=== PATIENT | male | born 1970 | race Caucasian/White ===

== ENCOUNTER 2023-07-28 09:43 | Day surgery (SDC) | payer OTHER ==
[2023-07-28] MEDS ORDERED: Lactated Ringers 1,000 ML IV ONE ×2 (09:48→09:59)
[2023-07-28] MEDS: Lactated Ringers 1,000 ML IV SCH (10:02)
[2023-07-28 10:07] VITALS: RESP 18
[2023-07-28 10:56] LABS: ALBUMIN 3.7 g/dL (3.5-5.0); ANION GAP 12.7 MEQ/L (5-15); BILIRUBIN,TOTAL 1.1 mg/dL (0.2-1.3); Calcium 8.9 mg/dL (8.4-10.2); Creatinine 1 0.94 mg/dL (0.66-1.25); EST GLOMERULAR FILTRATION RATE 97.5 ML/MIN; Potassium 4.4 mmol/L (3.5-5.1); Total Protein 6.8 g/dL (6.3-8.2)
[2023-07-28] MEDS ORDERED: Versed 2 MG/2 ML Injection ONE (12:46)
[2023-07-28] MEDS ORDERED: Xylocaine-Mpf 2% 5 Ml Vial ONE (12:46)
[2023-07-28] MEDS ORDERED: DIPRIVAN 200 MG/20 ML IV ONE ×3 (12:46→13:17)
[2023-07-28 13:57] VITALS: O2SAT 92
[2023-07-28 14:14] VITALS: BP 157/92; PULSE 83; TEMP 97.6
--- NOTE | 2023-07-28 14:14 | OP ---
SURGERY DATE/TIME: 07/28/2023 1250 PREOPERATIVE DIAGNOSIS: Elevated CEA and bright red blood per rectum. POSTOPERATIVE DIAGNOSES: 1) Large rectal polyps. 2) Slightly nodular prostate. PROCEDURE: Colonoscopy with polypectomy and tattoo. SURGEON: Leno Leung M.D. ANESTHESIA: IV anesthesia. CONDITION: Stable. COMPLICATIONS: None. SPECIMEN: 1) Ileocecal valve biopsy. 2) Rectal polyp at 20 cm at base for margins. 3) Rectal additional tissue. HISTORY: The patient is a 52-year-old male with no prior colonoscopy that presents with elevated CEA and bright red blood per rectum. I think that it is internal hemorrhoids. FINDINGS: Large rectal polyp at 20 cm. DESCRIPTION OF PROCEDURE: The patient brought down to endoscopy suite, routinely positioned and prepared. Time out performed. The external examination showed no significant hemorrhoidal disease. Internal examination shows slightly nodular prostate. The colonoscope inserted and retroflexed. There is not really any significant internal hemorrhoidal disease either. The scope is then advanced to the cecum confirmed by the ileocecal valve and appendiceal orifice. The Aronchick preparation is poor that small lesions could be missed and larger sessile lesions could be missed but copious amount of time spent irrigating off. The ileocecal valve is slightly prominent and with suctioning it was a little irritated but a biopsy was taken of the ileocecal valve. On withdrawal time greater than six minutes. There is a large 2 cm polyp with a stalk that is snared. There does appear to be healthy base on the stalk but it is taken with normal tissue on the stalk with hot snare this is at 20 cm from the third rectal valve. The polyp is retrieved and sent as "rectal polyp at 20 cm" with the base for margins and a little additional tissue that is also sent separately but that is clearly not the base. The defect is totally healthy, satisfactory hemostatic. Tattoo is placed immediately distal to that. Pictures were all taken. Retroflex into the rectum again normal. RECOMMENDATIONS: I recommend follow up in office in around two weeks. He should have a PSA if he does not have one already as the prostate is slightly nodular on exam. He certainly needs to follow up on the pathology of this polyp for any dysplasia. With the poor preparation, he is probably going to have a short interval colonoscopy also.
== END 2023-07-28 14:30 | disposition home or self-care (01) ==
LOC: SDC 09:43
PROVIDERS: ATTEND Surgery
DX: D12.8 Benign neoplasm of rectum (principal); R97.0 Elevated carcinoembryonic antigen [CEA]; K62.5 Hemorrhage of anus and rectum; Z80.0 Family history of malignant neoplasm of digestive organs; N40.2 Nodular prostate without lower urinary tract symptoms
CPT/HCPCS: 36415; 80053; J2250; J2704

== ENCOUNTER 2023-07-30 12:08 | Emergency (ER) | payer OTHER ==
[2023-07-30] MEDS ORDERED: XYLOCAINE 1%/Epi 1:100000 MDV 20 ML ONE (12:15)
[2023-07-30] MEDS: XYLOCAINE 1%/Epi 1:100000 MDV 20 ML IJ ONE (12:17)
[2023-07-30 12:18] VITALS: BP 110/86; PULSE 89; TEMP 97.3; O2SAT 94
--- NOTE | 2023-07-30 12:38 | ERPHSYRPT ---
- History of Present Illness Time Seen by Provider: 07/30/23 12:20 Source: patient Exam Limitations: no limitations Patient Subjective Stated Complaint: pt has vericose veins on his lower ext and one busted on his left lower leg Triage Nursing Assessment: Pt brought to the ER by EMS, vitals wnl, denies pain, pulses normal, bleeding has stopped, states that this has happened in the past, doesn't appear to be in any distress Physician History: Patient is a 52-year-old white male who has marked severe varicose veins of the left lower extremity he has had many episodes of bleeding from varicosities this episode started right yesterday and has been bleeding despite pressure dressings. Timing/Duration: yesterday Severity: moderate Associated Symptoms: denies symptoms Allergies/Adverse Reactions: gabapentin Adverse Reaction (Verified 07/30/23 12:18) hallucinations ibuprofen Adverse Reaction (Verified 07/30/23 12:18) Diarrhea Home Medications: Amlodipine Besylate 2.5 mg PO DAILY 07/28/23 [History] Apixaban [Eliquis] 5 mg PO BID 07/28/23 [History] Furosemide 40 mg [Lasix 40 MG] 40 mg PO DAILY 07/28/23 [History] Lisinopril 20 mg [Zestril 20 MG] 20 mg PO DAILY 07/28/23 [History] Metoprolol Succinate 50 mg [Toprol Xl 50 MG] 50 mg PO DAILY 07/28/23 [History] Potassium Chloride [Klor-Con 10] 10 meq PO DAILY 07/28/23 [History] Umeclidinium Brm/Vilanterol Tr [Anoro Ellipta 62.5-25 Mcg INH] 1 each IH DAILY 07/28/23 [History] Hx Tetanus, Diphtheria Vaccination/Date Given: Yes Hx Influenza Vaccination/Date Given: Yes Hx Pneumococcal Vaccination/Date Given: Yes Immunizations Up to Date: Yes Travel Risk - International Travel Have you traveled outside of the country in past 3 weeks: No - Emerging Infectious Disease Are you exhibiting symptoms associated with any current EIDs: No - Review of Systems Constitutional: No Fever, No Chills Eyes: No Symptoms Ears, Nose, & Throat: No Symptoms Respiratory: No Cough, No Dyspnea Cardiac: No Chest Pain, No Edema, No Syncope Abdominal/Gastrointestinal: No Abdominal Pain, No Nausea, No Vomiting, No Diarrhea Genitourinary Symptoms: No Dysuria Musculoskeletal: No Back Pain, No Neck Pain Skin: Other (Varicosities left lower extremity), No Rash Neurological: No Dizziness, No Focal Weakness, No Sensory Changes Psychological: No Symptoms Endocrine: No Symptoms All Other Systems: Reviewed and Negative - Past Medical History Pertinent Past Medical History: Yes Neurological History: No Pertinent History Cardiac History: Arrhythmia, Hypertension Respiratory History: COPD Endocrine Medical History: No Pertinent History Musculoskeletal History: Arthritis, Fractures Other Medical History: varicose veins. AFIB. R foot fx 1984 - Past Surgical History Past Surgical History: No Neuro Surgical History: No Pertinent History Cardiac: No Pertinent History Respiratory: No Pertinent History Gastrointestinal: Hernia Repair Genitourinary: No Pertinent History Musculoskeletal: Joint Replacement Male Surgical History: No Pertinent History Other Surgical History: blood clots removed from left leg-2017 - Social History Smoking Status: Never smoker Exposure to second hand smoke: No Drug Use: none Patient Lives Alone: No - Nursing Vital Signs Nursing Vital Signs: Initial Vital Signs Temperature 97.3 F 07/30/23 12:11 Pulse Rate 89 07/30/23 12:11 Blood Pressure 110/86 07/30/23 12:11 O2 Sat by Pulse Oximetry 94 L 07/30/23 12:11 Pain Scale Pain Intensity 0 - Physical Exam General Appearance: no apparent distress, alert Eye Exam: PERRL/EOMI, eyes nml inspection Ears, Nose, Throat Exam: normal ENT inspection, TMs normal, pharynx normal, moist mucous membranes Neck Exam: normal inspection, non-tender, supple, full range of motion Respiratory Exam: normal breath sounds, lungs clear, No respiratory distress Cardiovascular Exam: regular rate/rhythm, normal heart sounds, normal peripheral pulses Gastrointestinal/Abdomen Exam: soft, normal bowel sounds, No tenderness, No mass Back Exam: normal inspection, normal range of motion, No CVA tenderness, No vertebral tenderness Extremity Exam: other (Examination shows a varicosity which has been bleeding there is no active bleeding but every time he drops the leg to walk or stand he has increased bleeding.) Neurologic Exam: alert, oriented x 3, cooperative, normal mood/affect, nml cerebellar function, nml station & gait, sensation nml, No motor deficits Skin Exam: normal color, warm, dry, other (Varicosities), No rash Lymphatic Exam: No adenopathy SpO2 Interpretation: normal SpO2: 94 O2 Delivery: Room Air Procedures - Laceration/Wound Repair Left Lower Calf Wound Location: Left, lower leg Wound Length (cm): 0.2 Wound's Depth, Shape: superficial, irregular Wound Explored: Bleeding varicose vein Irrigated: Yes Hibiclens Prep: Yes Anesthesia: 1% lidocaine w/ Epi Volume Anesthetic (ccs): 3 Wound Debrided: minimal Wound Repaired With: sutures Suture Size/Type: 3-0, nylon Number of Sutures: 2 Layer Closure?: No - Course Nursing assessment & vital signs reviewed: Yes Ordered Tests: Medication Summary Discontinued Medications Generic Name Dose Route Start Last Admin Trade Name Freq PRN Reason Stop Dose Admin Lidocaine/Epinephrine 5 ml 07/30/23 12:16 07/30/23 12:17 Lidocaine Hcl/Epinephrine 1% 20 Ml IJ 07/30/23 12:17 5 ml STAT ONE Administration Lidocaine/Epinephrine Confirm 07/30/23 12:15 Lidocaine Hcl/Epinephrine 1% 20 Ml Administered 07/30/23 12:16 Dose 5 ml .ROUTE .[employer] ONE - Progress Progress: improved Progress Note: 07/30/23 12:40 Two 3-0 nylon sutures were placed on the upper and lower part of the lesion to try to occlude blood flow to that area. After the sutures were placed it seemed the bleeding stopped and it was observed for some time. Discussed with : [facility] - Risk of complications Low Risk: Low risk of morbidity from additional dx testing or treatment - Departure Departure Disposition: Home Clinical Impression: Ruptured varicosity Condition: Stable Critical Care Time: No Referrals: GUMARO CAVAZOS MD [Primary Care Provider] - Follow up/PCP as directed Instructions: Varicose Veins (DC) Additional Instructions: Patient was instructed to take 2 days off work and try to elevate the left lower extremity is much as possible sutures should be removed in 10 days. Forms: Work/School Release Form
== END 2023-07-30 13:00 | disposition home or self-care (01) ==
LOC: ED 12:08
DX: I83.892 Varicose veins of left lower extremity with other complications (principal); I10 Essential (primary) hypertension; Z79.01 Long term (current) use of anticoagulants; Z79.899 Other long term (current) drug therapy
CPT/HCPCS: 12001; 96372; 99282

== ENCOUNTER 2023-08-31 23:33 | Observation (INO) | payer OTHER, SELFPAY ==
[2023-09-01] MEDS ORDERED: Sodium Chloride 0.9% 1000 ML 1,000 ML ONE (00:08)
[2023-09-01] MEDS: Sodium Chloride 0.9% 1000 ML 1,000 ML IV STA (00:09)
[2023-09-01 00:11] LABS: Absolute Neutrophil Ct (ANC) 5.57 x10^3/uL (1.4-6.9); BASOPHIL % 0.7 % (0.0-0.4); Basophil (Absolute #) 0.05 x10^3/uL (0-0.4); Eosinophil % 2.7 % (0.00-5.0); Hematocrit 32.3 % (42-50); Hemoglobin 9.5 g/dL (12.5-18.0); IMMATURE GRAN # 0.03 x10^3u/L (0.00-0.03); IMMATURE GRAN % 0.4 % (0.00-0.4); Lymphocyte (Absolute #) 0.84 x10^3/uL (1.0-4.6); Lymphocytes % 11.3 % (24.0-44.0); Mean Cell Volume 92.6 fL (78-100); Mean Corpuscular Hemoglobin 27.2 pg (26-32); Mean Corpuscular Hgb Concent. 29.4 g/dL (32-36); Mean Platelet Volume 13.1 fL (7.5-11.0); Monocyte (Absolute #) 0.73 x10^3/uL (0.0-1.3); Monocytes % 9.8 % (0.0-12.0); Neutrophil % 75.1 % (36.0-66.0); Platelet Count 238 x10^3/uL (150-450); Red Blood Count 3.49 x10^6/uL (4.1-5.6); Red Cell Distribution Width 15.6 % (11.5-14.0); White Blood Count 7.4 x10^3/uL (4.0-10.5)
[2023-09-01 00:25] LABS: ALBUMIN 3.9 g/dL (3.5-5.0); ANION GAP 12.1 MEQ/L (5-15); BILIRUBIN,TOTAL 0.9 mg/dL (0.2-1.3); Calcium 8.8 mg/dL (8.4-10.2); Creatinine 1 1.4 mg/dL (0.66-1.25); EST GLOMERULAR FILTRATION RATE 60.5 ML/MIN; Total Protein 6.9 g/dL (6.3-8.2)
[2023-09-01 02:05] VITALS: O2SAT 99
[2023-09-01] MEDS ORDERED: MORPHINE SULFATE 2 MG INJ ONE (02:05)
[2023-09-01] MEDS: MORPHINE SULFATE 2 MG INJ IV ONE (02:05)
--- NOTE | 2023-09-01 02:53 | ERPHSYRPT ---
- History of Present Illness Time Seen by Provider: 08/31/23 23:50 Exam Limitations: no limitations Patient Subjective Stated Complaint: varicose vein ruptured Triage Nursing Assessment: pt presents to ED via medic 1, pt transferred to cot via sheet pull, pt alert and oriented x3, pt has varicose vein that ruptured on the L lower leg around 2230, ems placed tourniquet on around 2257, upon arrival tourniquet removed by ER MD at 2348 and vein still profusely bleeding. pinpint pressure applied Physician History: 52-year-old male presents emergency department via EMS for evaluation of hemorrhage from a varicose vein left lower extremity. Patient has had left lower extremity hemorrhage from varicose veins in the past. Patient was at home. Large volume of blood loss. Upon arrival to our ED patient was hypotensive. Patient was pale. There was a tourniquet placed below the knee left lower extremity. There is a compression dressing as well. Compression dressing removed. The involved site was oozing blood. We applied the pressure dressing and removed the tourniquet. Excellent hemostasis. No other injuries reported. Mother at bedside. They voiced no other complaints or concerns at this time. Portions of this note were created with voice recognition technology. There may be grammatical, spelling, punctuation or sound alike errors Timing/Duration: today Severity: moderate Modifying Factors: Improves With: nothing Associated Symptoms: denies symptoms Allergies/Adverse Reactions: gabapentin Adverse Reaction (Verified 08/31/23 23:37) hallucinations ibuprofen Adverse Reaction (Verified 08/31/23 23:37) Diarrhea Home Medications: Amlodipine Besylate 2.5 mg PO DAILY 07/28/23 [History] Apixaban [Eliquis] 5 mg PO BID 07/28/23 [History] Furosemide 40 mg [Lasix 40 MG] 40 mg PO DAILY 07/28/23 [History] Lisinopril 20 mg [Zestril 20 MG] 20 mg PO DAILY 07/28/23 [History] Metoprolol Succinate 50 mg [Toprol Xl 50 MG] 50 mg PO BID 07/28/23 [History] Potassium Chloride [Klor-Con 10] 10 meq PO DAILY 07/28/23 [History] Albuterol Sulfate [Proair Respiclick] 90 mcg IH Q4H PRN PRN 09/01/23 [History] Benzonatate 100 mg PO TID PRN PRN 09/01/23 [History] Fluticasone/Umeclidin/Vilanter [Trelegy Ellipta 100-62.5-25] 1 each IH DAILY 09/01/23 [History] Montelukast Sodium 10 mg [Singulair 10 MG] 10 mg PO DAILY 09/01/23 [History] Hx Tetanus, Diphtheria Vaccination/Date Given: Yes Hx Influenza Vaccination/Date Given: Yes Hx Pneumococcal Vaccination/Date Given: Yes Immunizations Up to Date: Yes Travel Risk - International Travel Have you traveled outside of the country in past 3 weeks: No - Emerging Infectious Disease Are you exhibiting symptoms associated with any current EIDs: No - Review of Systems Constitutional: No Symptoms, No Fever, No Chills Eyes: No Symptoms Ears, Nose, & Throat: No Symptoms Respiratory: No Symptoms, No Cough, No Dyspnea Cardiac: No Symptoms, No Chest Pain, No Edema, No Syncope Abdominal/Gastrointestinal: No Symptoms, No Abdominal Pain, No Nausea, No Vomiting, No Diarrhea Genitourinary Symptoms: No Symptoms, No Dysuria Musculoskeletal: No Symptoms, No Back Pain, No Neck Pain Skin: No Symptoms, No Rash Neurological: No Symptoms, No Dizziness, No Focal Weakness, No Sensory Changes Psychological: No Symptoms Endocrine: No Symptoms Hematologic/Lymphatic: No Symptoms Immunological/Allergic: No Symptoms All Other Systems: Reviewed and Negative - Past Medical History Pertinent Past Medical History: Yes Neurological History: No Pertinent History Cardiac History: Arrhythmia, Hypertension Respiratory History: COPD Endocrine Medical History: No Pertinent History Musculoskeletal History: Arthritis, Fractures Other Medical History: varicose veins. AFIB. R foot fx 1984 - Past Surgical History Past Surgical History: No Neuro Surgical History: No Pertinent History Cardiac: No Pertinent History Respiratory: No Pertinent History Gastrointestinal: Hernia Repair Genitourinary: No Pertinent History Musculoskeletal: Joint Replacement Male Surgical History: No Pertinent History Other Surgical History: blood clots removed from left leg-2018 - Social History Smoking Status: Never smoker Exposure to second hand smoke: No Drug Use: none Patient Lives Alone: No - Nursing Vital Signs Nursing Vital Signs: Initial Vital Signs Temperature 97.8 F 08/31/23 23:38 Pulse Rate 99 H 08/31/23 23:38 Respiratory Rate 18 08/31/23 23:38 Blood Pressure 80/42 08/31/23 23:38 O2 Sat by Pulse Oximetry 98 08/31/23 23:38 Pain Scale Pain Intensity 6 - Physical Exam General Appearance: no apparent distress, alert Eye Exam: PERRL/EOMI, eyes nml inspection Ears, Nose, Throat Exam: normal ENT inspection, TMs normal, pharynx normal, moist mucous membranes Neck Exam: normal inspection, non-tender, supple, full range of motion Respiratory Exam: normal breath sounds, lungs clear, airway intact, No respiratory distress Cardiovascular Exam: regular rate/rhythm, normal heart sounds, normal peripheral pulses Gastrointestinal/Abdomen Exam: soft, normal bowel sounds, No tenderness, No mass Back Exam: normal inspection, normal range of motion, No CVA tenderness, No vertebral tenderness Extremity Exam: normal inspection, normal range of motion, pelvis stable, other (Active bleeding from a ruptured varicose vein. Peripheral pulses are palpable.) Neurologic Exam: alert, oriented x 3, cooperative, normal mood/affect, nml cerebellar function, nml station & gait, sensation nml, No motor deficits Skin Exam: normal color, warm, dry, No rash Lymphatic Exam: No adenopathy SpO2 Interpretation: normal SpO2: 99 O2 Delivery: Room Air Procedures - Laceration/Wound Repair Left Calf Time of Procedure: 02:45 Wound Location: Left (Left lower leg medial aspect) Wound Length (cm): 0.4 Wound's Depth, Shape: superficial Wound Explored: clean Irrigated: Yes Hibiclens Prep: Yes Wound Debrided: No debridement indicated Wound Repaired With: sutures Suture Size/Type: 3-0, vicryl Number of Sutures: 5 Sterile Dressing Applied?: Yes Splint Applied?: No Sling Applied?: No Progress: Morphine administered for pain control 09/01/23 03:07 - Course Nursing assessment & vital signs reviewed: Yes Ordered Tests: Active Orders 24 hr Category Date Time Status Bedrest ROUTINE Activity 09/01/23 02:56 Active Call Admit Doctor for Orders ON ADMISSION Care 09/01/23 02:56 Active Explosives Truck Driver ROUTINE Care 09/01/23 02:56 Active Code Status Order ROUTINE Care 09/01/23 02:56 Active IV Insertion STAT Care 08/31/23 23:58 Active Neuro Checks Q4H Care 09/01/23 02:[address] in Observation ROUTINE Care 09/01/23 02:56 Active Telemetry q6h Care 09/01/23 02:56 Active Telemetry q6h Care 09/01/23 02:56 Completed Consistent Carbohydrate Diet 1800 Calorie Diet 09/01/23 Breakfast Active Pulse Oximetry CONTINUOUS RT 09/01/23 02:56 Completed Transfer Order Routine Transfer 09/01/23 Ordered Medication Summary Discontinued Medications Generic Name Dose Route Start Last Admin Trade Name Adrien PRN Reason Stop Dose Admin Sodium Chloride 1,000 mls @ 999 mls/hr 08/31/23 23:58 09/01/23 01:30 Sodium Chloride 0.9% 1000 Ml IV 09/01/23 00:58 Infused .Q1H1M STA Infusion Sodium Chloride Confirm 09/01/23 00:08 Sodium Chloride 0.9% 1000 Ml Administered 09/01/23 00:09 Dose 1,000 mls @ ud .ROUTE .STK-MED ONE Morphine Sulfate Confirm 09/01/23 02:05 Morphine Sulfate 2 Mg/Ml Inj Administered 09/01/23 02:06 Dose 2 mg .ROUTE .STK-MED ONE Morphine Sulfate 2 mg 09/01/23 02:05 09/01/23 02:05 Morphine Sulfate 2 Mg/Ml Inj IV 09/01/23 02:06 2 mg STAT ONE Administration Lab/Rad Data: Laboratory Result Diagrams 08/31/23 00:08 08/31/23 00:08 Laboratory Results 08/31/23 08/31/23 Range/Units 00:08 00:08 WBC 7.4 (4.0-10.5) x10^3/uL RBC 3.49 L (4.1-5.6) x10^6/uL Hgb 9.5 L (12.5-18.0) g/dL Hct 32.3 L (42-50) % MCV 92.6 (78-100) fL MCH 27.2 (26-32) pg MCHC 29.4 L (32-36) g/dL RDW 15.6 H (11.5-14.0) % Plt Count 238 (150-450) x10^3/uL MPV 13.1 H (7.5-11.0) fL Gran % 75.1 H (36.0-66.0) % Immature Gran % (Auto) 0.4 (0.00-0.4) % Nucleat RBC Rel Count 0.0 (0.00-0.1) % Eos # (Auto) 0.20 (0-0.5) x10^3/uL Immature Gran # (Auto) 0.03 (0.00-0.03) x10^3u/L Absolute Lymphs (auto) 0.84 L (1.0-4.6) x10^3/uL Absolute Monos (auto) 0.73 (0.0-1.3) x10^3/uL Absolute Nucleated RBC 0.00 (0.00-0.01) x10^3u/L Lymphocytes % 11.3 L (24.0-44.0) % Monocytes % 9.8 (0.0-12.0) % Eosinophils % 2.7 (0.00-5.0) % Basophils % 0.7 (0.0-0.4) % Absolute Granulocytes 5.57 (1.4-6.9) x10^3/uL Basophils # 0.05 (0-0.4) x10^3/uL Sodium 140 (135-145) mmol/L Potassium 4.0 (3.5-5.1) mmol/L Chloride 107 (98-107) mmol/L Carbon Dioxide 26 (22-30) mmol/L Anion Gap 12.1 (5-15) MEQ/L BUN 32 H (9-20) mg/dL Creatinine 1.40 H (0.66-1.25) mg/dL Estimated GFR 60.5 ML/MIN Glucose 179 H (74-106) mg/dL Calcium 8.8 (8.4-10.2) mg/dL Total Bilirubin 0.90 (0.2-1.3) mg/dL AST 17 (17-59) U/L ALT 16 (0-50) U/L Alkaline Phosphatase 81 (38-126) U/L Serum Total Protein 6.9 (6.3-8.2) g/dL Albumin 3.9 (3.5-5.0) g/dL - Progress Progress: improved Progress Note: 52-year-old male presents to our ED with hemorrhage from the left lower extremity varicose vein. Tourniquet pressure dressing applied. We removed the tourniquet and pressure dressing in our ED. The wound was profusely hemorrhaging blood. Pressure dressing applied. Tourniquet removed. We reassessed an hour later. The site continues to bleed. Patient is on Eliquis for A-fib. We decided to repair the bleeding varicosity using 4-0 Vicryl. [id number] stitch applied. Excellent hemostasis obtained. Patient neurovascular tact distally postprocedure. Patient states he feels too weak to go home. Initial laboratory workup reveals a hemoglobin of 9.5. There appears to be elevated creatinine likely secondary to acute renal injury from volume loss. Patient will be admitted for repeat H&H. Possible blood transfusion. Fluids infused. Blood pressure improved. Patient feels better but states he is not ready to be discharged. Management discussed with Dr. Jansen, hospitalist who accepts admission at 2:38 AM. Plan of care discussed with patient. He agrees to admission to [facility] for further evaluation and treatment. Portions of this note were created with voice recognition technology. There may be grammatical, spelling, punctuation or sound alike errors Complexity problem addressed is high. There is threat to bodily function.. No critical care time.. Complex of data reviewed and analyzed is extensive test ordered test reviewed results analyzed and correlated clinically with history and physical examination. Risk of complication and or risk of morbidity/mortality patient management is high. Patient requires hospitalization for further evaluation and treatment. Vital stable. Time spent to admit patient is approximately 20 minutes. Plan of care established for shared decision making. No social determinants of health present impede follow-up. Portions of this note were created with voice recognition technology. There may be grammatical, spelling, punctuation or sound alike errors 09/01/23 02:49 Counseled pt/family regarding: lab results, diagnosis - Departure Departure Disposition: Home Clinical Impression: Hemorrhage of varicose veins of left lower extremity, Acute renal injury, Anemia Condition: Stable Critical Care Time: No
[2023-09-01] MEDS ORDERED: Tessalon Perles 100 MG PO PRN (04:22)
[2023-09-01] MEDS ORDERED: NON-FORMULARY ITEM (Albuterol Sulfate [Proair Respiclick] 90 MCG Aer.Pow.Ba) IH PRN (04:22)
--- NOTE | 2023-09-01 04:26 | PCM.HP ---
History of Present Illness - Chief Complaint Chief Complaint: varicose vein rupture History of Present Illness: is a 52 year old male presents emergency department via EMS for evaluation of hemorrhage from a varicose vein left lower extremity. Patient has had left lower extremity hemorrhage from varicose veins in the past. Patient was at home and experienced large volume of blood loss. Upon arrival to our ED patient was hypotensive. Patient was pale. Underwent a suture with control of the bleeding varicose vein, with excellent hemostasis. No other injuries reported. Mother at bedside. They voiced no other complaints or concerns at this time. Admit overnight for observation. - Review of Systems Constitutional: No Fever, No Chills Eyes: No Symptoms Ears, Nose, & Throat: No Symptoms Respiratory: No Cough, No Short Of Breath Cardiac: No Chest Pain, No Edema, No Syncope Abdominal/Gastrointestinal: No Abdominal Pain, No Nausea, No Vomiting, No Diarrhea Genitourinary Symptoms: No Dysuria Musculoskeletal: No Back Pain, No Neck Pain Skin: No Rash Neurological: No Dizziness, No Focal Weakness, No Sensory Changes Psychological: No Symptoms Endocrine: No Symptoms Hematologic/Lymphatic: No Symptoms Immunological/Allergic: No Symptoms Medications & Allergies Home Medications: Home Medication List Amlodipine Besylate 2.5 mg PO DAILY 07/28/23 [History Confirmed 09/01/23] Apixaban [Eliquis] 5 mg PO BID 07/28/23 [History Confirmed 09/01/23] Furosemide 40 mg [Lasix 40 MG] 40 mg PO DAILY 07/28/23 [History Confirmed 09/01/23] Lisinopril 20 mg [Zestril 20 MG] 20 mg PO DAILY 07/28/23 [History Confirmed 09/01/23] Metoprolol Succinate 50 mg [Toprol Xl 50 MG] 50 mg PO BID 07/28/23 [History Confirmed 09/01/23] Potassium Chloride [Klor-Con 10] 10 meq PO DAILY 07/28/23 [History Confirmed 09/01/23] Albuterol Sulfate [Proair Respiclick] 90 mcg IH Q4H PRN PRN 09/01/23 [History Confirmed 09/01/23] Benzonatate 100 mg PO TID PRN PRN 09/01/23 [History Confirmed 09/01/23] Fluticasone/Umeclidin/Vilanter [Trelegy Ellipta 100-62.5-25] 1 each IH DAILY 0 09/01/23 [History Confirmed 09/01/23] Montelukast Sodium 10 mg [Singulair 10 MG] 10 mg PO DAILY 09/01/23 [History Confirmed 09/01/23] Allergies/Adverse Reactions: Allergies Allergy/AdvReac Type Severity Reaction Status Date / Time gabapentin AdvReac hallucinati Verified 08/31/23 23:37 ons ibuprofen AdvReac Diarrhea Verified 08/31/23 23:37 - Past Medical History Past Medical History: Yes Neurological History: No Pertinent History ENT History: Cataracts Cardiac History: Arrhythmia, Hypertension Respiratory History: COPD Endocrine Medical History: No Pertinent History Musculoskelatal History: Arthritis, Fractures GI Medical History: No Pertinent History History: No Pertinent History Male Reproductive Disorders: No Pertinent History Comment: varicose veins. AFIB. R foot fx 1984 - Past Surgical History Past Surgical History: No Neuro Surgical History: No Pertinent History Cardiac History: No Pertinent History Respiratory Surgery: No Pertinent History GI Surgical History: Hernia Repair Genitourinary Surgical Hx: No Pertinent History Musculskeletal Surgical Hx: Joint Replacement Male Surgical History: No Pertinent History Other Surgical History: blood clots removed from left leg-2017 - Social History Smoking Status: Never smoker Exposure to second hand smoke: No Alcohol: None Drug Use: none - Social Determinants of Health Will the patient participate in the screening: Yes Do you worry about a steady place to live?: No Do you have any problems with any of the following?: No known problems In the past 12 months,have you had to go without utilities?: No Have you or anyone in your house had to go without enough: No Transportation Issues: No Has anyone in your support network made you feel unsafe?: No Does the patient want assistance with any of the above?: No - Physical Exam Vital Signs: Vital Signs - 24 hr Temp Pulse Resp BP BP Pulse Ox 09/01/23 03:14 98.3 F 91 H 20 126/63 99 09/01/23 03:08 99 09/01/23 02:39 91 H 18 93/51 99 09/01/23 02:16 93 H 20 90/50 98 09/01/23 02:01 98 H 20 108/67 99 09/01/23 01:45 97 H 18 89/55 97 09/01/23 01:31 92 H 18 92/43 96 09/01/23 01:16 94 H 19 81/47 96 09/01/23 01:01 95 H 20 69/39 99 09/01/23 00:45 92 H 15 52/40 99 09/01/23 00:32 80 13 69/44 97 09/01/23 00:16 88 96 H 68/41 98 09/01/23 00:00 72 18 64/46 94 L 08/31/23 23:38 97.8 F 99 H 18 80/42 98 General Appearance: no apparent distress, alert Neurologic Exam: alert, oriented x 3, cooperative, normal mood/affect, nml cerebellar function, nml station & gait, sensation nml, No motor deficits Eye Exam: PERRL/EOMI, eyes nml inspection Ears, Nose, Throat Exam: normal ENT inspection, TMs normal, pharynx normal, moist mucous membranes Neck Exam: normal inspection, non-tender, supple, full range of motion Respiratory Exam: normal breath sounds, lungs clear, No respiratory distress Cardiovascular Exam: regular rate/rhythm, normal heart sounds, normal peripheral pulses Gastrointestinal/Abdomen Exam: soft, normal bowel sounds, No tenderness, No mass Back Exam: normal inspection, normal range of motion, No CVA tenderness, No vertebral tenderness Extremity Exam: normal inspection, normal range of motion, pelvis stable Skin Exam: normal color, warm, dry, No rash Lymphatic Exam: No adenopathy Results - Labs Lab/Micro Results: Lab Results-Last 24 Hours 08/31/23 08/31/23 Range/Units 00:08 00:08 WBC 7.4 (4.0-10.5) x10^3/uL RBC 3.49 L (4.1-5.6) x10^6/uL Hgb 9.5 L (12.5-18.0) g/dL Hct 32.3 L (42-50) % MCV 92.6 (78-100) fL MCH 27.2 (26-32) pg MCHC 29.4 L (32-36) g/dL RDW 15.6 H (11.5-14.0) % Plt Count 238 (150-450) x10^3/uL MPV 13.1 H (7.5-11.0) fL Gran % 75.1 H (36.0-66.0) % Immature Gran % (Auto) 0.4 (0.00-0.4) % Nucleat RBC Rel Count 0.0 (0.00-0.1) % Eos # (Auto) 0.20 (0-0.5) x10^3/uL Immature Gran # (Auto) 0.03 (0.00-0.03) x10^3u/L Absolute Lymphs (auto) 0.84 L (1.0-4.6) x10^3/uL Absolute Monos (auto) 0.73 (0.0-1.3) x10^3/uL Absolute Nucleated RBC 0.00 (0.00-0.01) x10^3u/L Lymphocytes % 11.3 L (24.0-44.0) % Monocytes % 9.8 (0.0-12.0) % Eosinophils % 2.7 (0.00-5.0) % Basophils % 0.7 (0.0-0.4) % Absolute Granulocytes 5.57 (1.4-6.9) x10^3/uL Basophils # 0.05 (0-0.4) x10^3/uL Sodium 140 (135-145) mmol/L Potassium 4.0 (3.5-5.1) mmol/L Chloride 107 (98-107) mmol/L Carbon Dioxide 26 (22-30) mmol/L Anion Gap 12.1 (5-15) MEQ/L BUN 32 H (9-20) mg/dL Creatinine 1.40 H (0.66-1.25) mg/dL Estimated GFR 60.5 ML/MIN Glucose 179 H (74-106) mg/dL Calcium 8.8 (8.4-10.2) mg/dL Total Bilirubin 0.90 (0.2-1.3) mg/dL AST 17 (17-59) U/L ALT 16 (0-50) U/L Alkaline Phosphatase 81 (38-126) U/L Serum Total Protein 6.9 (6.3-8.2) g/dL Albumin 3.9 (3.5-5.0) g/dL Assessment/Plan (1) Hemorrhage of varicose veins of left lower extremity Current Visit: Yes Status: Acute Assessment & Plan: 1. CBC check in the AM 2. Hold Apixiban overnight, can resume once Hgb is stable Code(s): I83.892 - VARICOSE VEINS OF L LOW EXTREM WITH OTHER COMPLICATIONS Telemedicine Encounter - Telemedicine Encounter Telemedicine Encounter: The entirety of this encounter was performed via Telemedicine"
[2023-09-01] MEDS: NORCO 5/325 MG PO PRN (04:42)
[2023-09-01 04:53] LABS: ABO TYPING A; Antibody Screen NEGATIVE (NEGATIVE); RH TYPING POSITIVE
[2023-09-01 06:50] LABS: Hematocrit 23.3 % (42-50); Mean Cell Volume 93.6 fL (78-100); Mean Corpuscular Hemoglobin 28.1 pg (26-32); Mean Platelet Volume 12.1 fL (7.5-11.0); Platelet Count 147 x10^3/uL (150-450); Red Blood Count 2.49 x10^6/uL (4.1-5.6); Red Cell Distribution Width 15.6 % (11.5-14.0); White Blood Count 6.4 x10^3/uL (4.0-10.5)
[2023-09-01] MEDS ORDERED: VENTOLIN COMMON CANISTER IH PRN (07:07)
[2023-09-01] MEDS ORDERED: MEDICATION INTERVENTION MC SCH (07:15)
[2023-09-01 07:40] LABS: ALBUMIN 2.7 g/dL (3.5-5.0); ANION GAP 7.9 MEQ/L (5-15); BILIRUBIN,TOTAL 0.7 mg/dL (0.2-1.3); Calcium 7.9 mg/dL (8.4-10.2); Creatinine 1 1.2 mg/dL (0.66-1.25); EST GLOMERULAR FILTRATION RATE 72.8 ML/MIN; Potassium 4.6 mmol/L (3.5-5.1)
[2023-09-01 08:40] LABS: CROSS MATCH (PRBC) COMPATIBLE (COMPATIBLE)
[2023-09-01] MEDS: Sodium Chloride 0.9% 1000 ML 1,000 ML IV SCH (08:46)
[2023-09-01] MEDS: Toprol Xl 50 MG PO SCH (09:19)
[2023-09-01] MEDS: NORVASC 5 MG PO SCH (09:25)
[2023-09-01] MEDS: Lasix 40 MG PO SCH (09:25)
[2023-09-01] MEDS: Klor Con PO SCH (09:25)
[2023-09-01] MEDS: Singulair 10 MG PO SCH (09:25)
[2023-09-01] MEDS: Zestril 20 MG PO SCH (09:25)
[2023-09-01] MEDS ORDERED: NON-FORMULARY ITEM (Apixaban [Eliquis] 5 MG Tablet) PO SCH (10:00)
[2023-09-01] MEDS ORDERED: NON-FORMULARY ITEM (Amlodipine Besylate [Amlodipine Besylate] 2.5 MG Tablet) PO SCH (10:00)
[2023-09-01] MEDS ORDERED: NON-FORMULARY ITEM (Fluticasone/Umeclidin/Vilanter [Trelegy Ellipta 100-62.5-25] 1 EACH Bl IH SCH (10:00)
[2023-09-01 11:25] VITALS: BP 112/62; PULSE 99; RESP 18; TEMP 98.2
--- NOTE | 2023-09-01 12:03 | PCM.DS ---
Discharge Summary Date of Admission: 09/01/23 02:51 Date of Discharge: 09/01/23 Admitting Physician: SHANNON ZAMBRANO MD Primary Care Provider: GUMARO CAVAZOS Allergies Allergies gabapentin Adverse Reaction (Verified 08/31/23 23:37) hallucinations ibuprofen Adverse Reaction (Verified 08/31/23 23:37) Diarrhea Hospital Summary - Hospital Course Hospital Course: is a 52 year old male presents emergency department via EMS for evaluation of hemorrhage from a varicose vein left lower extremity. Patient has had left lower extremity hemorrhage from varicose veins in the past. Patient was at home and experienced large volume of blood loss. Upon arrival to our ED patient was hypotensive. Patient was pale. Underwent a suture with control of the bleeding varicose vein, with excellent hemostasis. No other injuries reported. Patient did receive 1 unit blood transfusion. Vitals have remained stable. Discussed case with Dr. Lopez regarding patient's Eliquis, he would like patient to hold for 48 hours. Surgery has been consulted for vascular consultation as this is the third time patient has experienced hemmorrhage with this particular varicose vein. They will see him OP, appt has been made. Patient stable for discharge after cbc s/p transfusion. Discharge Note New Diagnosis: Hemorrhage of varicose vein of left lower extremity New Medications: Hold Eliquis x 48 hours Follow Up: PCP/Madhu balderas (surgery) Latest Assessment & Plan (1) Hemorrhage of varicose veins of left lower extremity Current Visit: Yes Status: Acute -hgb at 7.0, will transfuse one unit -Madhu group to evaluate OP #AFIB -Hold eliquis per cardiology x 48 hours #HTN -stable #COPD -Does not appear to be in exacerbation, on RA I spent 35 minutes [id number] with the patient on the day of discharge performing discharge exam, discussing hospital stay and discharge instructions with patient and caregivers, preparation of discharge records, prescriptions & referral forms and addressing any questions/concerns the patient had as docum ented above. - Vitals & Intake/Output Vital Signs: Vital Signs Temperature 98.2 F 09/01/23 11:24 Pulse Rate 99 H 09/01/23 11:24 Respiratory Rate 18 09/01/23 11:24 Blood Pressure 112/62 09/01/23 11:24 O2 Sat by Pulse Oximetry 99 05/02/24 07:15 Intake & Output: Intake & Output 08/29/23 08/30/23 08/31/23 09/01/23 11:59 11:59 11:59 11:59 Intake Total 350 Balance 350 Weight 149.7 kg - Lab Result Diagrams: 09/01/23 06:43 09/01/23 06:43 Lab Results-Last 24 Hrs: Lab Results-Last 24 Hours 08/31/23 08/31/23 09/01/23 Range/Units 00:08 00:08 04:10 WBC 7.4 (4.0-10.5) x10^3/uL RBC 3.49 L (4.1-5.6) x10^6/uL Hgb 9.5 L (12.5-18.0) g/dL Hct 32.3 L (42-50) % MCV 92.6 (78-100) fL MCH 27.2 (26-32) pg MCHC 29.4 L (32-36) g/dL RDW 15.6 H (11.5-14.0) % Plt Count 238 (150-450) x10^3/uL MPV 13.1 H (7.5-11.0) fL Gran % 75.1 H (36.0-66.0) % Immature Gran % (Auto) 0.4 (0.00-0.4) % Nucleat RBC Rel Count 0.0 (0.00-0.1) % Eos # (Auto) 0.20 (0-0.5) x10^3/uL Immature Gran # (Auto) 0.03 (0.00-0.03) x10^3u/L Absolute Lymphs (auto) 0.84 L (1.0-4.6) x10^3/uL Absolute Monos (auto) 0.73 (0.0-1.3) x10^3/uL Absolute Nucleated RBC 0.00 (0.00-0.01) x10^3u/L Lymphocytes % 11.3 L (24.0-44.0) % Monocytes % 9.8 (0.0-12.0) % Eosinophils % 2.7 (0.00-5.0) % Basophils % 0.7 (0.0-0.4) % Absolute Granulocytes 5.57 (1.4-6.9) x10^3/uL Basophils # 0.05 (0-0.4) x10^3/uL Sodium 140 (135-145) mmol/L Potassium 4.0 (3.5-5.1) mmol/L Chloride 107 (98-107) mmol/L Carbon Dioxide 26 (22-30) mmol/L Anion Gap 12.1 (5-15) MEQ/L BUN 32 H (9-20) mg/dL Creatinine 1.40 H (0.66-1.25) mg/dL Estimated GFR 60.5 ML/MIN Glucose 179 H (74-106) mg/dL Calcium 8.8 (8.4-10.2) mg/dL Total Bilirubin 0.90 (0.2-1.3) mg/dL AST 17 (17-59) U/L ALT 16 (0-50) U/L Alkaline Phosphatase 81 (38-126) U/L Serum Total Protein 6.9 (6.3-8.2) g/dL Albumin 3.9 (3.5-5.0) g/dL ABO Group A Rh Factor POSITIVE Antibody Screen NEGATIVE (NEGATIVE) Crossmatch (COMPATIBLE) 09/01/23 09/01/23 09/01/23 Range/Units 04:10 06:43 06:43 WBC 6.4 (4.0-10.5) x10^3/uL RBC 2.49 L (4.1-5.6) x10^6/uL Hgb 7.0 L* D (12.5-18.0) g/dL Hct 23.3 L (42-50) % MCV 93.6 (78-100) fL MCH 28.1 (26-32) pg MCHC 30.0 L (32-36) g/dL RDW 15.6 H (11.5-14.0) % Plt Count 147 L D (150-450) x10^3/uL MPV 12.1 H (7.5-11.0) fL Gran % (36.0-66.0) % Immature Gran % (Auto) (0.00-0.4) % Nucleat RBC Rel Count (0.00-0.1) % Eos # (Auto) (0-0.5) x10^3/uL Immature Gran # (Auto) (0.00-0.03) x10^3u/L Absolute Lymphs (auto) (1.0-4.6) x10^3/uL Absolute Monos (auto) (0.0-1.3) x10^3/uL Absolute Nucleated RBC (0.00-0.01) x10^3u/L Lymphocytes % (24.0-44.0) % Monocytes % (0.0-12.0) % Eosinophils % (0.00-5.0) % Basophils % (0.0-0.4) % Absolute Granulocytes (1.4-6.9) x10^3/uL Basophils # (0-0.4) x10^3/uL Sodium 141 (135-145) mmol/L Potassium 4.6 (3.5-5.1) mmol/L Chloride 112 H (98-107) mmol/L Carbon Dioxide 26 (22-30) mmol/L Anion Gap 7.9 (5-15) MEQ/L BUN 32 H (9-20) mg/dL Creatinine 1.20 (0.66-1.25) mg/dL Estimated GFR 72.8 ML/MIN Glucose 103 (74-106) mg/dL Calcium 7.9 L (8.4-10.2) mg/dL Total Bilirubin 0.70 (0.2-1.3) mg/dL AST 15 L (17-59) U/L ALT 12 (0-50) U/L Alkaline Phosphatase 62 (38-126) U/L Serum Total Protein 5.0 L (6.3-8.2) g/dL Albumin 2.7 L (3.5-5.0) g/dL ABO Group Rh Factor Antibody Screen (NEGATIVE) Crossmatch COMPATIBLE (COMPATIBLE) Discharge Exam General Appearance: no apparent distress Neurologic Exam: alert, oriented x 3, cooperative Eye Exam: PERRL Ears, Nose, Throat Exam: normal ENT inspection Neck Exam: normal inspection, full range of motion Respiratory Exam: normal breath sounds, lungs clear Cardiovascular Exam: regular rate/rhythm, normal heart sounds Gastrointestinal/Abdomen Exam: soft, normal bowel sounds Male Genitalia Exam: deferred Rectal Exam: deferred Back Exam: normal inspection Extremity Exam: lacerations (LLE with sutures CDI, no erythema/draina ge/streaking) Skin Exam: normal color Final Diagnosis/Problem List - Final Discharge Diagnosis/Problem (1) Hemorrhage of varicose veins of left lower extremity Current Visit: Yes Status: Resolved Code(s): I83.892 - VARICOSE VEINS OF L LOW EXTREM WITH OTHER COMPLICATIONS (2) Afib Current Visit: Yes Status: Chronic Code(s): I48.91 - UNSPECIFIED ATRIAL FIBRILLATION (3) HTN (hypertension) Current Visit: Yes Status: Chronic Code(s): I10 - ESSENTIAL (PRIMARY) HYPERTENSION (4) COPD (chronic obstructive pulmonary disease) Current Visit: Yes Status: Chronic - Discharge Disposition: Home, Self-Care Condition: Stable Prescriptions: Continue Potassium Chloride [Klor-Con 10] 10 meq PO DAILY Furosemide 40 mg [Lasix 40 MG] 40 mg PO DAILY Metoprolol Succinate 50 mg [Toprol Xl 50 MG] 50 mg PO BID Amlodipine Besylate 2.5 mg PO DAILY Lisinopril 20 mg [Zestril 20 MG] 20 mg PO DAILY Fluticasone/Umeclidin/Vilanter [Trelegy Ellipta 100-62.5-25] 1 each IH DAILY Albuterol Sulfate [Proair Respiclick] 90 mcg IH Q4H PRN PRN PRN Reason: Shortness Of Breath/Wheezing Montelukast Sodium 10 mg [Singulair 10 MG] 10 mg PO DAILY Benzonatate 100 mg PO TID PRN PRN PRN Reason: Cough Discontinued Apixaban [Eliquis] 5 mg PO BID Additional Instructions: Hold Eliquis for [address] Lopez, then you can resume at normal dosing Follow up with: GUMARO CAVAZOS MD [Primary Care Provider] - Follow up/PCP as directed PATI SALDANA MD [ACTIVE STAFF] - 09/08/23 9:00 am ([facility] )
[2023-09-01 12:25] LABS: Hematocrit 26.3 % (42-50); Hemoglobin 7.9 g/dL (12.5-18.0)
== END 2023-09-01 13:42 | disposition home or self-care (01) ==
LOC: ED 23:33 → MED SURG 09-01 02:51
PROVIDERS: ADMIT Student in an Organized Health Care Education/Training Program; ATTEND Student in an Organized Health Care Education/Training Program
DX: I83.892 Varicose veins of left lower extremity with other complications (principal); I48.91 Unspecified atrial fibrillation; R58 Hemorrhage, not elsewhere classified; I10 Essential (primary) hypertension; J44.9 Chronic obstructive pulmonary disease, unspecified; Z79.01 Long term (current) use of anticoagulants; Z79.899 Other long term (current) drug therapy
CPT/HCPCS: 12001; 36000; 36415; 80053; 85014; 85018; 85025; 85027; 86850; 86900; 86901; 86922; 96374; P9016; 36430; 93268; 99285; J2270; Q3014; A9270-GY; G0378

== ENCOUNTER 2024-08-13 19:24 | Emergency (ER) | payer OTHER ==
--- NOTE | 2024-08-13 19:26 | ERPHSYRPT ---
- History of Present Illness Time Seen by Provider: 08/13/24 19:25 Source: patient Exam Limitations: no limitations Physician History: This is a 53-year-old morbidly obese white male patient of Dr. Olivas who arrives by private vehicle accompanied by his spouse with the complaint of a sudden onset of left lateral below the knee skin varicosity bleed under pressure. This has happened to him in the past. The patient arrives with a pressure dressing. We took the pressure dressing down and there was a pinpoint venous bleed but under pressure. Patient has a history of DVT and he is on Eliquis. He last took his Eliquis dose at 4 PM today. He has no other complaints. He denies chest pain. He denies shortness of breath. He is not dizzy. Method of Injury: other (No injury) Occurred: just prior to arrival Quality: constant Severity of Pain-Max: mild Severity of Pain-Current: mild Lower Extremities Pain: leg: left (Lateral aspect lower leg below the knee) Modifying Factors: Improves With: nothing Associated Symptoms: none Allergies/Adverse Reactions: gabapentin Adverse Reaction (Verified 08/31/23 23:37) hallucinations ibuprofen Adverse Reaction (Verified 08/31/23 23:37) Diarrhea Home Medications: Amlodipine Besylate 2.5 mg PO DAILY 07/28/23 [History] Furosemide 40 mg [Lasix 40 MG] 40 mg PO DAILY 07/28/23 [History] Lisinopril 20 mg [Zestril 20 MG] 20 mg PO DAILY 07/28/23 [History] Metoprolol Succinate 50 mg [Toprol Xl 50 MG] 50 mg PO BID 07/28/23 [History] Potassium Chloride [Klor-Con 10] 10 meq PO DAILY 07/28/23 [History] Albuterol Sulfate [Proair Respiclick] 90 mcg IH Q4H PRN PRN 09/01/23 [History] Benzonatate 100 mg PO TID PRN PRN 09/01/23 [History] Fluticasone/Umeclidin/Vilanter [Trelegy Ellipta 100-62.5-25] 1 each IH DAILY 09/01/23 [History] Montelukast Sodium 10 mg [Singulair 10 MG] 10 mg PO DAILY 09/01/23 [History] Hx Tetanus, Diphtheria Vaccination/Date Given: Yes Hx Influenza Vaccination/Date Given: Yes Hx Pneumococcal Vaccination/Date Given: Yes Travel Risk - International Travel Have you traveled outside of the country in past 3 weeks: No - Emerging Infectious Disease Are you exhibiting symptoms associated with any current EIDs: No - Review of Systems Constitutional: No Symptoms Eyes: No Symptoms Ears, Nose, & Throat: No Symptoms Respiratory: No Symptoms Cardiac: No Symptoms Abdominal/Gastrointestinal: No Symptoms Genitourinary Symptoms: No Symptoms Musculoskeletal: No Symptoms Skin: Other (Chronic venous stasis disease. Multiple bilateral lower extremities varicosities both small and large.) Neurological: No Symptoms Psychological: No Symptoms Endocrine: No Symptoms Hematologic/Lymphatic: No Symptoms Immunological/Allergic: No Symptoms All Other Systems: Reviewed and Negative - Past Medical History Pertinent Past Medical History: Yes Neurological History: No Pertinent History Cardiac History: Arrhythmia, Hypertension Respiratory History: COPD Endocrine Medical History: No Pertinent History Musculoskeletal History: Osteoarthritis Other Medical History: HX OF ARTHROSCOPIC SURGERY RIGHT KNEE. - Past Surgical History Past Surgical History: No Neuro Surgical History: No Pertinent History Cardiac: No Pertinent History Respiratory: No Pertinent History Gastrointestinal: Hernia Repair Genitourinary: No Pertinent History Musculoskeletal: Joint Replacement Male Surgical History: No Pertinent History Other Surgical History: blood clots removed from left leg-2018 - Social History Smoking Status: Never smoker Exposure to second hand smoke: No Drug Use: none - Social Determinants of Health Will the patient participate in the screening: Yes Do you worry about a steady place to live?: No In the past 12 months,have you had to go without utilities?: No Transportation Issues: No Has anyone in your support network made you feel unsafe?: No Have you or anyone in your house had to go w/o enough food: No - Nursing Vital Signs Nursing Vital Signs: Initial Vital Signs Temperature 97.8 F 08/13/24 19:24 Pulse Rate 98 H 08/13/24 19:24 Respiratory Rate 18 08/13/24 19:24 Blood Pressure 118/68 08/13/24 19:24 O2 Sat by Pulse Oximetry 98 08/13/24 19:24 Pain Scale Pain Intensity 8 - Physical Exam General Appearance: no apparent distress, alert, obese Eyes, Ears, Nose, Throat Exam: normal ENT inspection, moist mucous membranes Neck Exam: normal inspection, non-tender, supple, full range of motion Cardiovascular/Respiratory Exam: chest non-tender, no respiratory distress Gastrointestinal/Abdominal Exam: non-tender Back Exam: normal inspection, normal range of motion, No CVA tenderness, No vertebral tenderness Hips Exam: bilateral: non-tender, normal inspection, normal range of motion, no evidence of injury Legs Exam: right leg: non-tender, left leg: soft tissue tenderness (Below the knee lateral aspect in the area of a pinpoint varicosity that is under pressure.), bilateral leg: normal range of motion, no evidence of injury Knees Exam: bilateral knee: non-tender, normal inspection, normal range of motion, no evidence of injury Ankle Exam: bilateral ankle: swelling (Chronic bilateral ankle swelling) Foot Exam: bilateral foot: non-tender, normal inspection, normal range of motion Procedures - Additional Procedures Progress: Procedure note: At approximately 1930 timeout was performed. The previously placed pressure dressing was removed and there was a pinpoint, lateral aspect, below the knee area of venous bleeding under pressure. We then positioned the patient to put his legs up higher than his heart and the high pressure venous bleed ceased. There was small amount of oozing from this pinpoint area. We then used 2 silver nitrate sticks to cauterize the area which stopped the bleeding. We then placed a nonstick Telfa pad followed by an ABD pad, Kerlix and Coban tape. There were no complications. Patient taught the procedure well - Course Nursing assessment & vital signs reviewed: Yes Ordered Tests: Medication Summary Discontinued Medications Generic Name Dose Route Start Last Admin Trade Name Adrien PRN Reason Stop Dose Admin Silver Nitrate Confirm 08/13/24 19:35 Silver Nitrate 1 Pkt Each Administered 08/13/24 19:36 Dose 1 pkt TP .STK-MED ONE Silver Nitrate 2 pkt 08/13/24 19:30 08/13/24 19:59 Silver Nitrate 1 Pkt Each TP 08/13/24 19:31 2 pkt STAT ONE Administration - Progress Progress: improved Progress Note: 08/13/24 20:10 My medical decision making and the assignment of low complexity to this patient's medical issue today is based on review of the patient's past medical history, review of the patient's medication list review the patient drug allergy list, history present illness and physical findings on examination. No radiographic or laboratory studies are necessary in the workup of this patient. Differential diagnosis includes was not limited to venous bleed from pinpoint varicosity, arterial bleed from a pinpoint vessel, chronic venous stasis disease Counseled pt/family regarding: diagnosis, need for follow-up Medical Desision Making - Independent Historian Additional History obtained from: Spouse - Diagnostic Testing Diagnostic test were ordered, analyzed, and reviewed by me: No - Risk of complications Low Risk: Low risk of morbidity from additional dx testing or treatment - Departure Departure Disposition: Home Clinical Impression: Bleeding from varicose veins of left lower extremity Condition: Stable Critical Care Time: No Referrals: DOMINIQUE OLIVAS MD [Primary Care Provider] - Follow up/PCP as directed Additional Instructions: Stop your Eliquis. Stop aspirin if you are on that medication. Keep the current pressure dressing in place and return to the emergency department on 08/15/2024 for reassessment. Keep your left leg elevated above the level of your heart. Minimize your ambulation over the next 48 hours. Ice pack to the area 3 times a day for the next 48 hours. Cover the site with a cloth before putting the ice pack to help prevent getting the site wet. Call your primary care provider tomorrow, 08/14/2024, to make arranges for follow-up appointment for further evaluation and management. Return to the emergency department sooner if you have significant bleeding through the pressure dressing.
[2024-08-13] MEDS ORDERED: ARZOL Silver Nitrate Applicator TP ONE (19:35)
[2024-08-13 19:56] VITALS: TEMP 97.8
[2024-08-13] MEDS: ARZOL Silver Nitrate Applicator TP ONE (19:59)
[2024-08-13] MEDS ORDERED: NORCO 5/325 MG ONE (20:18)
[2024-08-13] MEDS: NORCO 5/325 MG PO ONE (20:19)
[2024-08-13 20:27] VITALS: BP 94/66; PULSE 89; RESP 20; O2SAT 94
== END 2024-08-13 20:39 | disposition home or self-care (01) ==
LOC: ED 19:24
DX: I83.892 Varicose veins of left lower extremity with other complications (principal); I10 Essential (primary) hypertension; Z79.01 Long term (current) use of anticoagulants; Z79.899 Other long term (current) drug therapy
CPT/HCPCS: 99281; 99283; A9270-GY

== ENCOUNTER 2024-08-15 18:13 | Emergency (ER) | payer OTHER ==
[2024-08-15 18:30] VITALS: TEMP 97.5
[2024-08-15 18:56] VITALS: RESP 18
--- NOTE | 2024-08-15 19:36 | ERPHSYRPT ---
- History of Present Illness Time Seen by Provider: 08/15/24 19:31 Source: patient Exam Limitations: no limitations Patient Subjective Stated Complaint: pt here for wound recheck. pt had a bleeding varicose vein to left lower leg on tuesday and was told to come back for a recheck Triage Nursing Assessment: pt alert, walked in wiith a cane, resp easy, skin w/d/p. has dressing to lower left leg with swelling to leg, states she had to redress leg at home due to it falling off. has small scabed area to leg with no bleeding or redness noted Physician History: Patient is a 53-year-old male presents to our ED for a wound check at the request of his ER physician Dr. Godoy. Patient reports that Tuesday he developed a bleeding varicose vein. The bleeding was stopped. Patient was advised to come to our ED for an evaluation. Patient has had a dressing on his wound for 2 days. The area of involvement appears to be healing well. No active bleeding. The bleeding varicose vein was treated with silver nitrate. Patient otherwise has been well since his last visit. Patient's mother is at the bedside. They voiced no other complaints or concerns at this time. Portions of this note were created with voice recognition technology. There may be grammatical, spelling, punctuation or sound alike errors Timing/Duration: day(s) (2 days) Severity: mild Modifying Factors: Improves With: nothing Associated Symptoms: denies symptoms Allergies/Adverse Reactions: gabapentin Adverse Reaction (Verified 08/15/24 18:26) hallucinations ibuprofen Adverse Reaction (Verified 08/15/24 18:26) Diarrhea Home Medications: Amlodipine Besylate 2.5 mg PO DAILY 07/28/23 [History] Furosemide 40 mg [Lasix 40 MG] 40 mg PO DAILY 07/28/23 [History] Lisinopril 20 mg [Zestril 20 MG] 20 mg PO DAILY 07/28/23 [History] Metoprolol Succinate 50 mg [Toprol Xl 50 MG] 50 mg PO BID 07/28/23 [History] Potassium Chloride [Klor-Con 10] 10 meq PO DAILY 07/28/23 [History] Albuterol Sulfate [Proair Respiclick] 90 mcg IH Q4H PRN PRN 09/01/23 [History] Benzonatate 100 mg PO TID PRN PRN 09/01/23 [History] Fluticasone/Umeclidin/Vilanter [Trelegy Ellipta 100-62.5-25] 1 each IH DAILY 09/01/23 [History] Montelukast Sodium 10 mg [Singulair 10 MG] 10 mg PO DAILY 09/01/23 [History] Hx Tetanus, Diphtheria Vaccination/Date Given: Yes Hx Influenza Vaccination/Date Given: Yes Hx Pneumococcal Vaccination/Date Given: Yes Immunizations Up to Date: Yes Travel Risk - International Travel Have you traveled outside of the country in past 3 weeks: No - Emerging Infectious Disease Are you exhibiting symptoms associated with any current EIDs: No - Review of Systems Constitutional: No Symptoms, No Fever, No Chills Eyes: No Symptoms Ears, Nose, & Throat: No Symptoms Respiratory: No Symptoms, No Cough, No Dyspnea Cardiac: No Symptoms, No Chest Pain, No Edema, No Syncope Abdominal/Gastrointestinal: No Symptoms, No Abdominal Pain, No Nausea, No Vomiting, No Diarrhea Genitourinary Symptoms: No Symptoms, No Dysuria Musculoskeletal: No Symptoms, No Back Pain, No Neck Pain Skin: No Symptoms, No Rash Neurological: No Symptoms, No Dizziness, No Focal Weakness, No Sensory Changes Psychological: No Symptoms Endocrine: No Symptoms Hematologic/Lymphatic: No Symptoms Immunological/Allergic: No Symptoms All Other Systems: Reviewed and Negative - Past Medical History Pertinent Past Medical History: Yes Neurological History: No Pertinent History ENT History: Cataracts Cardiac History: Arrhythmia, Hypertension Respiratory History: COPD Endocrine Medical History: No Pertinent History Musculoskeletal History: Osteoarthritis GI Medical History: No Pertinent History History: No Pertinent History Male Reproductive Disorders: No Pertinent History Other Medical History: HX OF ARTHROSCOPIC SURGERY RIGHT KNEE. - Past Surgical History Past Surgical History: No Neuro Surgical History: No Pertinent History Cardiac: No Pertinent History Respiratory: No Pertinent History Gastrointestinal: Hernia Repair Genitourinary: No Pertinent History Musculoskeletal: Joint Replacement Male Surgical History: No Pertinent History Other Surgical History: blood clots removed from left leg-2017 - Social History Smoking Status: Never smoker Exposure to second hand smoke: No Drug Use: none - Social Determinants of Health Will the patient participate in the screening: Yes Do you worry about a steady place to live?: No Do you have any problems with any of the following?: No known problems In the past 12 months,have you had to go without utilities?: No Transportation Issues: No Has anyone in your support network made you feel unsafe?: No Have you or anyone in your house had to go w/o enough food: No - Nursing Vital Signs Nursing Vital Signs: Initial Vital Signs Temperature 97.5 F 08/15/24 18:30 Pulse Rate 87 08/15/24 18:30 Respiratory Rate 20 08/15/24 18:30 Blood Pressure 139/81 08/15/24 18:30 O2 Sat by Pulse Oximetry 97 08/15/24 18:30 Pain Scale Pain Intensity 0 - Physical Exam General Appearance: no apparent distress, alert Eye Exam: PERRL/EOMI, eyes nml inspection Ears, Nose, Throat Exam: normal ENT inspection, moist mucous membranes Neck Exam: normal inspection, full range of motion Respiratory Exam: normal breath sounds, lungs clear, No respiratory distress Cardiovascular Exam: regular rate/rhythm, normal heart sounds, normal peripheral pulses Gastrointestinal/Abdomen Exam: soft, normal bowel sounds, No tenderness, No mass Back Exam: normal inspection, normal range of motion, No CVA tenderness, No vertebral tenderness Extremity Exam: normal inspection, normal range of motion, pelvis stable, other (Left lateral lower leg shows the area of the bleeding varicose vein. There is residual silver nitrate in the area. No active bleeding. The involved extremity is neurovascular intact distally compartments are soft cap refill less than 2 seconds.) Neurologic Exam: alert, oriented x 3, cooperative, normal mood/affect, sensation nml, No motor deficits Skin Exam: normal color, warm, dry, No rash Lymphatic Exam: No adenopathy SpO2 Interpretation: normal SpO2: 95 O2 Delivery: Room Air - Course Nursing assessment & vital signs reviewed: Yes - Progress Progress: unchanged Progress Note: 53-year-old male presents to our ED for wound check. The varicose vein appears to be healing well. No active bleeding. The involved extremity is neurovascular tact distally compartments are soft cap refill less than 2 seconds. We will maintain the dressing for another 2 to 3 days to protect the area. Patient advised to remove the dressing permanently in 2 to 3 days. Patient agrees to follow-up with his primary care doctor within 48 hours for reevaluation. No indication for further workup at this time. Will discharge home. Mother at bedside. They voiced no other complaints or concerns at this time. Portions of this note were created with voice recognition technology. There may be grammatical, spelling, punctuation or sound alike errors Complexity of problem addressed is moderate acute complicated. No critical care time. Complex of data reviewed and analyzed is none. Diagnosis made based on history and physical exam. No specialized testing ordered or indicated. Risk of complication and or risk of morbidity/mortality of patient management is low. Vital stable. Time spent to discharge patient is approximately 10 minutes. Plan of care established for shared decision making. No social determinants of health present to impede follow-up. Portions of this note were created with voice recognition technology. There may be grammatical, spelling, punctuation or sound alike errors 08/15/24 19:41 Counseled pt/family regarding: diagnosis, need for follow-up - Departure Departure Disposition: Home Clinical Impression: Visit for wound check Condition: Stable Critical Care Time: No Referrals: DOMINIQUE OLIVAS MD [Primary Care Provider] - Follow up/PCP as directed Additional Instructions: Discharge/Care Plan ROSHAN JONES was seen on 08/15/24 in the Emergency Room. The patient was counseled regarding Diagnosis,Lab results, Imaging studies, need for follow up and when to return to the Emergency Room. Prescriptions given: Discharge Note I have spoken with the patient and/or caregivers. I have explained the patient's condition, diagnosis and treatment plan based on the information available to me at this time. I have answered the patient's and/or caregiver's questions and addressed any concerns. The patient and/or caregivers have as good understanding of the patient's diagnosis, condition and treatment plan as can be expected at this point. The vital signs have been stable. The patient's condition is stable and appropriate for discharge from the emergency department. The patient will pursue further outpatient evaluation with the primary care physician or other designated or consulting physician as outlined in the discharge instructions. The patient and/or caregivers are agreeable to this plan of care and follow-up instructions have been explained in detail. The patient and/or caregivers have received these instruction. The patient/and or caregivers are aware that any significant change in condition or worsening of symptoms should prompt an immediate return to this or the closest emergency department or call 911.
[2024-08-15 20:04] VITALS: BP 101/64; PULSE 80; O2SAT 96
== END 2024-08-15 20:15 | disposition home or self-care (01) ==
LOC: ED 18:13
DX: Z48.00 Encounter for change or removal of nonsurgical wound dressing (principal)
CPT/HCPCS: 99281

== ENCOUNTER 2025-01-10 10:37 | Day surgery (SDC) | payer OTHER ==
[2025-01-10] MEDS ORDERED: Lactated Ringers 1,000 ML IV SCH (11:00)
[2025-01-10 11:34] LABS: Calcium 9.3 mg/dL (8.4-10.2); Carbon Dioxide 28.0 mmol/L (22-30); Creatinine 1 1.17 mg/dL (0.66-1.25); EST GLOMERULAR FILTRATION RATE 74.1 ML/MIN; Glucose 98.0 mg/dL (74-106); Potassium 4.0 mmol/L (3.5-5.1)
[2025-01-10] MEDS ORDERED: Versed 2 MG/2 ML Injection ONE (12:27)
[2025-01-10] MEDS ORDERED: Xylocaine-Mpf 2% 5 Ml Vial ONE (12:27)
[2025-01-10] MEDS ORDERED: propofoL IV ONE ×2 (12:27→12:48)
[2025-01-10] MEDS ORDERED: Ketamine HCl 50 MG/ML ONE (12:27)
[2025-01-10 13:42] VITALS: TEMP 97.1
[2025-01-10 13:52] VITALS: BP 116/77; PULSE 89; RESP 20
[2025-01-10 13:53] VITALS: O2SAT 97
[2025-01-10] MEDS: Lactated Ringers 1,000 ML IV SCH (14:17)
--- NOTE | 2025-01-11 10:33 | OP ---
SURGERY DATE/TIME: 01/10/2025 [id number] PREOPERATIVE DIAGNOSIS: History of piecemeal polypectomy. POSTOPERATIVE DIAGNOSES: 1) Polyps. 2) Diverticulosis. PROCEDURE: Colonoscopy with hot snare polypectomy. SURGEON: Leno Leung MD ANESTHESIA: IV. CONDITION: Stable. COMPLICATIONS: None. SPECIMENS: None. INDICATIONS: Patient is a 54-year-old male with history of polypectomy of large rectal polyp with tattoo placed distal and he is due for surveillance of that. Discussed with patient and he elected to proceed. FINDINGS: A small, 5 mm hepatic flexure polyp removed with hot snare. Poor preparation, about 75% mucosal visualization. DESCRIPTION OF PROCEDURE AND FINDINGS: The patient brought to the endoscopy suite, routinely positioned, prepared. IV anesthesia induced by anesthesia. External exam with a small, thrombosed hemorrhoid. Colonoscope was inserted and advanced to the cecum, confirmed by the ileocecal valve and the appendiceal orifice. Preparation is an Aronchick poor preparation with 75% mucosal visualization throughout the colon and unable to totally clear that stool. On withdrawal, there is a 5 mm hepatic flexure polyp, pedunculated on stalk that is taken with hot snare, but it is not retrieved. Withdrawal time greater than 8 minutes. In the rectum, about 20 cm, there is the tattoo and that entire area proximally is completely evaluated. On total satisfactory evaluation of that area there is absolutely nothing there. He does have some moderate diverticulosis in descending and sigmoid colon. Retroflexion satisfactory. Scope withdrawn. Patient tolerated the procedure well, was taken to Recovery in stable condition. RECOMMENDATIONS: Likely would be a 3-year follow up for colonoscopy for surveillance but with history of polyps, though his prep is suboptimal, I do not think it is ever going to be better than what it was.
== END 2025-01-10 14:07 | disposition home or self-care (01) ==
LOC: SDC 10:37
PROVIDERS: ATTEND Surgery
DX: Z09 Encounter for follow-up examination after completed treatment for conditions other than malignant neoplasm (principal); Z86.0100 Personal history of colon polyps, unspecified; K63.5 Polyp of colon; K57.30 Diverticulosis of large intestine without perforation or abscess without bleeding; I10 Essential (primary) hypertension; K64.4 Residual hemorrhoidal skin tags